=== PATIENT | female | born 1950 | race Caucasian/White ===

== ENCOUNTER 2020-06-03 13:22 | Outpatient (CLI) | payer MEDICARE, SELFPAY ==
--- NOTE | 2020-06-03 13:28 | MM_ITS ---
WS: [id number] BILATERAL SCREENING DIGITAL MAMMOGRAM WITH CAD HISTORY: SCREENING COMPARISON: 05/23/2018, 10/11/2010 Bilateral CC and MLO views submitted. Computer aided detection analyzed. Breast composition: The breasts are heterogeneously dense, which may obscure small masses. No suspici ous masses, microcalcifications or architectural distortion. Scattered asymmetries and calcifications are stable. MM/[id number] IMPRESSION: BI-RADS: 2-Benign FOLLOW UP: 1 Year Follow-up
== END 2020-06-03 13:23 | disposition home or self-care (01) ==
LOC: RADSHAW 13:27
PROVIDERS: PCP Family Medicine; Visit Provider Family Medicine
DX: Z12.31 Encounter for screening mammogram for malignant neoplasm of breast (principal)
CPT/HCPCS: 77067

== ENCOUNTER → 2020-06-22 14:48 | Outpatient (BNVA) | payer MEDICARE, SELFPAY | PROVIDERS: PCP Family Medicine; Visit Provider Dermatology | DX: D48.9 Neoplasm of uncertain behavior, unspecified (principal) | CPT/HCPCS: 88304 ==

== ENCOUNTER 2021-09-01 10:04 | Outpatient (CLI) | payer MEDICARE, SELFPAY ==
--- NOTE | 2021-09-01 10:17 | MM_ITS ---
WS: [id number] SCREENING DIGITAL MAMMOGRAM WITH CAD HISTORY: SCREENING COMPARISON: 06/03/2020, 05/23/2018 Bilateral CC and MLO views submitted. Computer aided detection analyzed. Breast composition: There are scattered areas of fibroglandular density. There is an area of very sub tle architectural distortion seen best on the LEFT MLO projection above the nipple. No associated mas s. There are benign calcifications within each breast. MM/[id number] IMPRESSION: BI-RADS: 0-Incomplete: Need additional imaging evaluation FOLLOW UP: Need Additional Imaging LEFT breast: Spot compression views (CC and MLO). True ML. Ultrasound to follow if abnormality persists.
== END 2021-09-01 10:05 | disposition home or self-care (01) ==
LOC: RADSHAW 10:13
PROVIDERS: PCP Family Medicine; Visit Provider Family Medicine
DX: Z12.31 Encounter for screening mammogram for malignant neoplasm of breast (principal)
CPT/HCPCS: 77067

== ENCOUNTER 2021-11-16 12:46 | Outpatient (CLI) | payer MEDICARE, SELFPAY ==
--- NOTE | 2021-11-16 13:03 | MM_ITS ---
WS: [id number] ADDITIONAL VIEWS LEFT MAMMOGRAM, 3-D imaging. LEFT BREAST ULTRASOUND HISTORY: ABNORMAL MAMMOGRAM COMPARISON: 09/01/2021, 09/03/2019 and 05/23/2018 LEFT MAMMOGRAM: Spot compression views and true ML. Additional imaging with 3-D demonstrates very minimal persistent area of asymmetry in the superior LE FT breast. Completely resolves with the additional imaging. There is no distortion or soft tissue mas s. Ultrasound will be performed. LEFT BREAST ULTRASOUND 2-D and color Doppler imaging submitted. Ultrasound is directed to the superior LEFT breast from 12-2 o'clock in the area of mammographic conc rema. There is no soft tissue mass, shadowing or distortion. MM/[id number] IMPRESSION: BI-RADS: 2-Benign FOLLOW UP: 1 Year Follow-up Return to annual screening mammography. Findings on the recent mammogram likely due to superimposed fibroglandular densities.
== END 2021-11-16 12:47 | disposition home or self-care (01) ==
PROVIDERS: PCP Family Medicine; Visit Provider Family Medicine
DX: R92.8 Other abnormal and inconclusive findings on diagnostic imaging of breast (principal)
CPT/HCPCS: 76642; 77061

== ENCOUNTER → 2023-02-13 14:04 | Outpatient (BNVA) | payer MEDICARE, SELFPAY | PROVIDERS: PCP Family Medicine; Visit Provider Dermatology | DX: L82.1 Other seborrheic keratosis (principal); L81.4 Other melanin hyperpigmentation; L57.0 Actinic keratosis; L85.3 Xerosis cutis; D18.01 Hemangioma of skin and subcutaneous tissue; Z85.828 Personal history of other malignant neoplasm of skin; Z72.0 Tobacco use | CPT/HCPCS: 17000; 17003; 99213 ==

== ENCOUNTER → 2024-03-17 13:30 | Outpatient (BNVA) | payer MEDICARE, OTHER, SELFPAY | PROVIDERS: PCP Family Medicine; Visit Provider Nurse Practitioner Family | DX: L82.1 Other seborrheic keratosis (principal); L81.4 Other melanin hyperpigmentation; L57.0 Actinic keratosis; L57.8 Other skin changes due to chronic exposure to nonionizing radiation; D18.01 Hemangioma of skin and subcutaneous tissue; L85.3 Xerosis cutis; L82.0 Inflamed seborrheic keratosis; L65.0 Telogen effluvium; Z85.820 Personal history of malignant melanoma of skin | CPT/HCPCS: 17000; 17110; 99214 ==